=== PATIENT | male | born 1980 | race Caucasian/White ===

== ENCOUNTER 2023-08-09 11:26 | Outpatient (CLI) | payer OTHER, SELFPAY | END 2023-08-09 11:27 | disposition home or self-care (01) | PROVIDERS: PCP Family Medicine; Visit Provider Family Medicine | DX: Z00.00 Encounter for general adult medical examination without abnormal findings (principal); E78.1 Pure hyperglyceridemia; E66.01 Morbid (severe) obesity due to excess calories; Z13.6 Encounter for screening for cardiovascular disorders | CPT/HCPCS: 80053; 80061 ==

== ENCOUNTER 2023-09-06 09:24 | Outpatient (CLI) | payer OTHER, SELFPAY | END 2023-09-06 09:25 | disposition home or self-care (01) | LOC: OP CLINIC 09:25 | PROVIDERS: PCP Family Medicine; Visit Provider Surgery | DX: Z53.9 Procedure and treatment not carried out, unspecified reason (principal) ==

== ENCOUNTER 2023-11-01 09:26 | Outpatient (CLI) | payer OTHER, SELFPAY ==
--- NOTE | 2023-11-01 10:43 | W.ANESCHARGE ---
Anesthesia Charges Start Date/Time Anesthesia Start Date: 11/01/23 Anesthesia Start Time: 10:15 Stop Date/Time Anesthesia Stop Date: 11/01/23 Anesthesia Stop Time: 10:43
--- NOTE | 2023-11-01 11:44 | W.ANESCHARGE ---
Anesthesia Charges Start Date/Time Anesthesia Start Date: 11/01/23 Anesthesia Start Time: 10:15 Stop Date/Time Anesthesia Stop Date: 11/01/23 Anesthesia Stop Time: 10:43
== END 2023-11-01 09:27 | disposition home or self-care (01) ==
LOC: OP CLINIC 09:27
PROVIDERS: PCP Family Medicine; Visit Provider Internal Medicine
DX: Z12.11 Encounter for screening for malignant neoplasm of colon (principal); K63.5 Polyp of colon
CPT/HCPCS: 00811; 45380; 88305; J2704